=== PATIENT | female | born 1990 | race Caucasian/White ===

== ENCOUNTER 2021-01-29 22:36 | Inpatient (IN) | payer MEDICAID ==
[~2021-01-29] VITALS: Ht 162.6 cm; Wt 96.6 kg
[2021-01-29] MEDS ORDERED: SODIUM CHLORIDE 0.9% 1,000 ML IV ONE (23:45)
[2021-01-30] MEDS ORDERED: LABETALOL 5MG/ML SYR 20 MG/4 ML SYRINGE IV ONE
[2021-01-30 00:16] LABS: BASOPHILS % 0.6 % (0.0-2.0); HEMATOCRIT. 34.5 % (36.0-48.0); HEMOGLOBIN. 11.1 g/dL (12.0-16.0); LYMPHOCYTES % 21.3 % (20.0-50.0); MEAN CORPUSCULAR HEMOGLOBIN 29.1 pg (28.0-32.0); MEAN CORPUSCULAR VOLUME 90.5 fL (81.0-99.0); MEAN PLATELET VOLUME 10.3 fl (7.4-10.4); MONOCYTES % 3.6 % (2.0-8.0); NEUTROPHILS % 72.5 % (40.0-76.0); PLATELET 318 x1000/uL (130-400); RED BLOOD CELL COUNT 3.82 mill/uL (4.2-5.4); RED CELL DISTRIBUTION WIDTH 13.9 % (11.6-14.6)
[2021-01-30 00:21] LABS: CHLORIDE 101 mEq/L (98-107)
[2021-01-30 00:28] LABS: CLARITY URINE CLEAR (CLEAR); COLOR URINE YELLOW (YELLOW); KETONES URINE NEGATIVE (NEGATIVE); LEUKOCYTE ESTERASE URINE NEGATIVE (NEGATIVE); NITRITE URINE NEGATIVE (NEGATIVE); OCCULT BLOOD URINE TRACE (NEGATIVE); PH URINE 6.5 (4.5-8.0); PROTEIN URINE 4+ (NEGATIVE); SPECIFIC GRAVITY URINE 1.017 (1.005-1.030); UROBILINOGEN URINE 0.2 E.U./dL (0.2-1.0)
[2021-01-30 00:31] LABS: BETA HYDROXYBUTYRATE 0.1 mMol/L (0.0-0.3)
[2021-01-30] MEDS ORDERED: INSULIN REGULAR (HUMULIN R) 300UNITS/3ML VIAL SUBCUT ONE (01:15)
[2021-01-30] MEDS ORDERED: CEFTRIAXONE 1 G PREMIX 50 ML IV ONE (01:15)
[2021-01-30] MEDS ORDERED: AZITHROMYCIN 500 MG TABLET PO ONE (01:15)
[2021-01-30] MEDS ORDERED: ACETAMINOPHEN 325MG TABLET PO PRN (03:30)
[2021-01-30] MEDS ORDERED: HYDRALAZINE 20MG/ML VIAL IV PRN (03:30)
[2021-01-30] MEDS ORDERED: DIPHENHYDRAMINE 50MG/ML VIAL IV PRN (03:30)
[2021-01-30] MEDS ORDERED: GUAIFENESIN 200MG/10ML SUGAR FREE UDC PO PRN (03:30)
[2021-01-30] MEDS ORDERED: CLONIDINE 0.1MG TABLET PO PRN (03:30)
[2021-01-30] MEDS ORDERED: MORPHINE SULFATE 2 MG/ML CPJ (NOT FOR IM USE) IV PRN (03:30)
[2021-01-30] MEDS ORDERED: LORAZEPAM 2MG/ML CPJ IV PRN (03:30)
[2021-01-30] MEDS ORDERED: MAGNESIUM/ALUMINUM HYDROXIDE/SIMETHICONE 30ML UDC PO PRN (03:30)
[2021-01-30] MEDS ORDERED: HYDROCODONE/ACETAMINOPHEN 5/325MG TABLET PO PRN (03:30)
[2021-01-30] MEDS ORDERED: ONDANSETRON HCL 4MG/2ML INJ IV PRN (03:30)
[2021-01-30] MEDS ORDERED: DOCUSATE SODIUM 100MG CAPSULE PO PRN (03:30)
[2021-01-30] MEDS ORDERED: DEXTROSE 50% WATER 50ML SYRINGE IV PRN (03:30)
[2021-01-30] MEDS ORDERED: IPRATROPIUM/ALBUTEROL 0.5-3(2.5)MG/3ML NEB HHN PRN (03:30)
[2021-01-30] MEDS ORDERED: INSULIN LISPRO 100 UNITS/ML SUBCUT NR (04:00)
[2021-01-30] MEDS ORDERED: NALOXONE HCL 0.4MG/ML VIAL IV PRN (04:30)
[2021-01-30] MEDS ORDERED: INSULIN GLARGINE UD 100 UNITS/ML SYR SUBCUT SCH (05:00)
[2021-01-30 05:42] VITALS: BP 162/90
[2021-01-30 05:43] VITALS: BP 162/90
[2021-01-30] MEDS: SODIUM CHLORIDE 0.9% INJ 3ML FLUSH IVF SCH ×3 (05:51→21:04)
[2021-01-30] MEDS ORDERED: ATOR10TA PO (05:58)
[2021-01-30] MEDS ORDERED: INSLIS SUBCUT (05:58)
[2021-01-30] MEDS ORDERED: ASPI-1497 PO (05:58)
[2021-01-30] MEDS: BLOOD SUGAR DIAGNOSTIC STRIP TEST SCH ×4 (06:23→21:02)
[2021-01-30] MEDS: HYDRALAZINE HCL 50MG TABLET PO SCH ×3 (06:37→21:03)
[2021-01-30] MEDS: SODIUM CHLORIDE 0.45% 1,000 ML IV SCH ×2 (06:37→21:02)
[2021-01-30 06:52] LABS: BASOPHILS % 0.8 % (0.0-2.0); EOSINOPHILS % 1.7 % (0.0-5.0); HEMATOCRIT. 30.1 % (36.0-48.0); LYMPHOCYTES % 26.1 % (20.0-50.0); MEAN CORPUSCULAR HEMOGLOBIN 28.8 pg (28.0-32.0); MEAN CORPUSCULAR VOLUME 87.1 fL (81.0-99.0); MEAN PLATELET VOLUME 9.9 fl (7.4-10.4); MONOCYTES % 5.5 % (2.0-8.0); NEUTROPHILS % 65.9 % (40.0-76.0); PLATELET 286 x1000/uL (130-400); RED BLOOD CELL COUNT 3.46 mill/uL (4.2-5.4); RED CELL DISTRIBUTION WIDTH 13.4 % (11.6-14.6)
[2021-01-30 07:03] LABS: CHLORIDE 108 mEq/L (98-107)
[2021-01-30 08:00] VITALS: BP 128/76
[2021-01-30] MEDS: ENOXAPARIN 30MG/0.3ML SYR SUBCUT SCH (08:37)
[2021-01-30] MEDS: INSULIN LISPRO 100 UNITS/ML SUBCUT SCH ×4 (08:38→21:04)
[2021-01-30 13:31] VITALS: BP 126/71
[2021-01-30 16:00] VITALS: BP 129/73
[2021-01-30 20:00] VITALS: BP 119/74
[2021-01-30] MEDS: INSULIN GLARGINE UD 100 UNITS/ML SYR SUBCUT SCH (21:04)
[2021-01-31] VITALS: BP 123/75
[2021-01-31 04:00] VITALS: BP 111/69
[2021-01-31] MEDS: SODIUM CHLORIDE 0.9% INJ 3ML FLUSH IVF SCH ×3 (05:21→21:24)
[2021-01-31] MEDS: HYDRALAZINE HCL 50MG TABLET PO SCH ×3 (05:21→21:23)
[2021-01-31] MEDS: BLOOD SUGAR DIAGNOSTIC STRIP TEST SCH ×4 (07:20→21:24)
[2021-01-31] MEDS: INSULIN LISPRO 100 UNITS/ML SUBCUT SCH ×4 (07:50→21:25)
[2021-01-31 08:00] VITALS: BP 123/72
[2021-01-31 09:10] LABS: HEMATOCRIT 31.2 % (36.0-48.0); HEMOGLOBIN 10.4 g/dL (12.0-16.0); MEAN CORPUSCULAR VOLUME 86.9 fL (81.0-99.0); PLATELET 309 x1000/uL (130-400); RED BLOOD CELL COUNT 3.59 mill/uL (4.2-5.4); RED CELL DISTRIBUTION WIDTH 13.7 % (11.6-14.6)
[2021-01-31 09:14] LABS: CREATINE KINASE 48 IU/L (26-192)
[2021-01-31] MEDS: ENOXAPARIN 30MG/0.3ML SYR SUBCUT SCH (09:42)
[2021-01-31] MEDS: INSULIN GLARGINE UD 100 UNITS/ML SYR SUBCUT SCH ×2 (09:46→21:26)
[2021-01-31] MEDS: SODIUM CHLORIDE 0.45% 1,000 ML IV SCH ×2 (09:47→21:27)
[2021-01-31 11:22] LABS: HEPATITIS B SURFACE ANTIGEN NEGATIVE
[2021-01-31 12:00] VITALS: BP 139/87
[2021-01-31 16:00] VITALS: BP 136/83
[2021-01-31 20:00] VITALS: BP 161/88
[2021-02-01] VITALS: BP 129/68
[2021-02-01 04:00] VITALS: BP 110/56
[2021-02-01] MEDS: HYDRALAZINE HCL 50MG TABLET PO SCH (05:45)
[2021-02-01] MEDS: SODIUM CHLORIDE 0.9% INJ 3ML FLUSH IVF SCH (05:46)
[2021-02-01] MEDS: INSULIN LISPRO 100 UNITS/ML SUBCUT SCH ×2 (06:39→12:18)
[2021-02-01] MEDS: BLOOD SUGAR DIAGNOSTIC STRIP TEST SCH ×2 (06:39→12:16)
[2021-02-01] MEDS: ENOXAPARIN 30MG/0.3ML SYR SUBCUT SCH (08:48)
[2021-02-01 08:56] LABS: BASOPHILS % 0.6 % (0.0-2.0); HEMATOCRIT. 29.3 % (36.0-48.0); LYMPHOCYTES % 36.9 % (20.0-50.0); MEAN CORPUSCULAR HEMOGLOBIN 29.3 pg (28.0-32.0); MEAN CORPUSCULAR VOLUME 85.7 fL (81.0-99.0); MEAN PLATELET VOLUME 9.8 fl (7.4-10.4); MONOCYTES % 4.1 % (2.0-8.0); NEUTROPHILS % 54.4 % (40.0-76.0); PLATELET 292 x1000/uL (130-400); RED BLOOD CELL COUNT 3.42 mill/uL (4.2-5.4)
[2021-02-01] MEDS: INSULIN GLARGINE UD 100 UNITS/ML SYR SUBCUT SCH (10:00)
[2021-02-01] MEDS ORDERED: LISINOPRIL 2.5MG TABLET PO SCH (10:30)
[2021-02-01] MEDS: SODIUM CHLORIDE 0.45% 1,000 ML IV SCH (11:27)
[2021-02-01 12:00] VITALS: BP 145/83
[2021-02-01 13:09] VITALS: BP 145/83
[2021-02-04 10:08] LABS: ANTI-NUCLEAR ANTIBODIES DIRECT Negative (Negative)
== END 2021-02-01 13:56 | disposition home or self-care (01) | DRG 420 ==
LOC: ER 22:42 → 6WST 01-30 00:13 → ENRESERV 01-30 00:34
PROVIDERS: ADMIT Internal Medicine; ATTEND Internal Medicine
DX: E11.65 Type 2 diabetes mellitus with hyperglycemia (principal); N17.0 Acute kidney failure with tubular necrosis; E43 Unspecified severe protein-calorie malnutrition; E87.2 Acidosis; E86.0 Dehydration; E66.9 Obesity, unspecified; E11.319 Type 2 diabetes mellitus with unspecified diabetic retinopathy without macular edema; E78.00 Pure hypercholesterolemia, unspecified; E87.1 Hypo-osmolality and hyponatremia; E87.5 Hyperkalemia; E87.6 Hypokalemia; I10 Essential (primary) hypertension; I16.0 Hypertensive urgency
CPT/HCPCS: 36415; 71045; 76770; 80048; 80053; 80061; 81003; 82010; 82140; 82550; 82570; 82962; 83036; 83605; 83880; 84156; 84443; 84484; 85025; 85027; 86038; 86160; 86592; 86803; 87340; 93005; 93970; 99285; C1893; J0696; J1650; J1815; J3490; J7030

== ENCOUNTER 2022-09-14 13:02 | Inpatient (IN) | payer MEDICAID ==
[~2022-09-14] VITALS: Ht 147.3 cm; Wt 93.0 kg
[~2022-09-14 13:02] MED LIST: AMLO10TA80 PO; ASPI-1497 PO; ATOR10TA PO; BLOO-1812 MC; CALC667C PO; FERR-63 PO; INSU100I28 SQ; LANC-585 TP; METF-414 MT; METO25TA6 PO; NEED-472 SQ; OMEP20CA14 PO
[2022-09-14 15:04] LABS: CHLORIDE 92 mEq/L (98-107)
[2022-09-14 15:12] LABS: PROTHROMBIN TIME 10.3 sec (9.6-11.0)
[2022-09-14 15:18] LABS: BASOPHILS % 0.4 % (0.0-2.0); EOSINOPHILS % 0.5 % (0.0-5.0); HEMATOCRIT. 27.2 % (36.0-48.0); HEMOGLOBIN. 9.1 g/dL (12.0-16.0); LYMPHOCYTES % 13.9 % (20.0-50.0); MEAN CORPUSCULAR HEMOGLOBIN 31.3 pg (28.0-32.0); MEAN CORPUSCULAR VOLUME 93.3 fL (81.0-99.0); MEAN PLATELET VOLUME 9.9 fl (7.4-10.4); MONOCYTES % 4.9 % (2.0-8.0); NEUTROPHILS % 80.3 % (40.0-76.0); PLATELET 298 x1000/uL (130-400); RED BLOOD CELL COUNT 2.91 mill/uL (4.2-5.4); RED CELL DISTRIBUTION WIDTH 14.3 % (11.6-14.6)
[2022-09-14] MEDS ORDERED: MORPHINE SULFATE 4 MG/ML CPJ (NOT FOR IM USE) IV ONE (16:45)
[2022-09-14 17:05] LABS: CLARITY URINE CLEAR (CLEAR); COLOR URINE YELLOW (YELLOW); KETONES URINE NEGATIVE (NEGATIVE); LEUKOCYTE ESTERASE URINE NEGATIVE (NEGATIVE); NITRITE URINE NEGATIVE (NEGATIVE); OCCULT BLOOD URINE 1+ (NEGATIVE); PH URINE 7.5 (4.5-8.0); PROTEIN URINE 4+ (NEGATIVE); SPECIFIC GRAVITY URINE 1.025 (1.005-1.030); UROBILINOGEN URINE 0.2 E.U./dL (0.2-1.0)
[2022-09-14] MEDS ORDERED: INSULIN REGULAR (HUMULIN R) 300UNITS/3ML VIAL IV NR (17:45)
[2022-09-14 18:30] VITALS: BP 176/92
[2022-09-14] MEDS ORDERED: ACETAMINOPHEN 325MG TABLET PO PRN ×2 (18:45)
[2022-09-14] MEDS ORDERED: LORAZEPAM 0.5MG TABLET PO PRN (18:45)
[2022-09-14] MEDS ORDERED: ONDANSETRON HCL 4MG/2ML INJ IV PRN (18:45)
[2022-09-14] MEDS ORDERED: IPRATROPIUM/ALBUTEROL 0.5-3(2.5)MG/3ML NEB HHN PRN (18:45)
[2022-09-14] MEDS ORDERED: NALOXONE HCL 0.4MG/ML VIAL IV PRN (19:00)
[2022-09-14] MEDS: CLONIDINE 0.1MG TABLET PO PRN (19:45)
[2022-09-14 20:00] VITALS: BP 184/93
[2022-09-14] MEDS: HYDROCODONE/ACETAMINOPHEN 5/325MG TABLET PO PRN (20:15)
[2022-09-14] MEDS ORDERED: DEXTROSE 50% WATER 50ML SYRINGE IV PRN (23:45)
[2022-09-15] VITALS (19 sets, daily range): BP systolic 102–201; BP diastolic 51–87
[2022-09-15] MEDS: BLOOD SUGAR DIAGNOSTIC STRIP TEST SCH ×4 (05:50→20:12)
[2022-09-15 07:24] LABS: BASOPHILS % 0.3 % (0.0-2.0); EOSINOPHILS % 0.1 % (0.0-5.0); HEMATOCRIT. 24.1 % (36.0-48.0); HEMOGLOBIN. 8.2 g/dL (12.0-16.0); LYMPHOCYTES % 13.8 % (20.0-50.0); MEAN CORPUSCULAR HEMOGLOBIN 31.7 pg (28.0-32.0); MEAN PLATELET VOLUME 9.8 fl (7.4-10.4); MONOCYTES % 5.2 % (2.0-8.0); NEUTROPHILS % 80.6 % (40.0-76.0); PLATELET 278 x1000/uL (130-400); RED BLOOD CELL COUNT 2.59 mill/uL (4.2-5.4); RED CELL DISTRIBUTION WIDTH 14.3 % (11.6-14.6)
[2022-09-15] MEDS: INSULIN LISPRO 100 UNITS/ML SUBCUT SCH ×4 (10:06→20:29)
[2022-09-15] MEDS: INSULIN GLARGINE 100 UNITS/ML SUBCUT SCH (10:43)
[2022-09-15] MEDS: CLONIDINE 0.1MG TABLET PO PRN (16:45)
[2022-09-15] MEDS: HYDROCODONE/ACETAMINOPHEN 5/325MG TABLET PO PRN (16:55)
[2022-09-15] MEDS: PIPERACILLIN/TAZOBACTAM 3.375 G in DEXTROSE 5% WATER 50 ML IV SCH (20:28)
[2022-09-15] MEDS: EPOETIN ALFA-EPBX 4,000 UNIT/ML VIAL SUBCUT SCH (20:28)
[2022-09-15 21:53] LABS: HEPATITIS B SURFACE ANTIGEN NEGATIVE
[2022-09-16] VITALS (9 sets, daily range): BP systolic 98–155; BP diastolic 51–84
[2022-09-16 06:44] LABS: BASOPHILS % 0.4 % (0.0-2.0); EOSINOPHILS % 1.5 % (0.0-5.0); HEMATOCRIT. 22.7 % (36.0-48.0); HEMOGLOBIN. 7.6 g/dL (12.0-16.0); LYMPHOCYTES % 23.6 % (20.0-50.0); MEAN CORPUSCULAR HEMOGLOBIN 31.1 pg (28.0-32.0); MEAN CORPUSCULAR VOLUME 93.6 fL (81.0-99.0); MEAN PLATELET VOLUME 9.7 fl (7.4-10.4); MONOCYTES % 6.2 % (2.0-8.0); NEUTROPHILS % 68.3 % (40.0-76.0); PLATELET 260 x1000/uL (130-400); RED BLOOD CELL COUNT 2.43 mill/uL (4.2-5.4); RED CELL DISTRIBUTION WIDTH 14.4 % (11.6-14.6)
[2022-09-16] MEDS: BLOOD SUGAR DIAGNOSTIC STRIP TEST SCH ×4 (06:58→21:09)
[2022-09-16 07:17] LABS: PHOSPHORUS 4.5 mg/dL (2.5-4.9)
[2022-09-16] MEDS: INSULIN LISPRO 100 UNITS/ML SUBCUT SCH ×4 (07:58→21:00)
[2022-09-16] MEDS: PIPERACILLIN/TAZOBACTAM 3.375 G in DEXTROSE 5% WATER 50 ML IV SCH ×2 (08:22→21:08)
[2022-09-16] MEDS: FOLIC ACID/VITAMIN B COMP W-C TABLET PO SCH (08:22)
[2022-09-16] MEDS: INSULIN GLARGINE 100 UNITS/ML SUBCUT SCH (10:42)
[2022-09-17] VITALS: BP 131/66
[2022-09-17 04:00] VITALS: BP 135/60
[2022-09-17 06:06] LABS: PHOSPHORUS 4.2 mg/dL (2.5-4.9)
[2022-09-17 06:11] LABS: BASOPHILS % 0.5 % (0.0-2.0); HEMATOCRIT. 23.7 % (36.0-48.0); HEMOGLOBIN. 8.1 g/dL (12.0-16.0); MEAN CORPUSCULAR HEMOGLOBIN 32.1 pg (28.0-32.0); MEAN CORPUSCULAR VOLUME 93.5 fL (81.0-99.0); MEAN PLATELET VOLUME 9.6 fl (7.4-10.4); MONOCYTES % 6.4 % (2.0-8.0); NEUTROPHILS % 58.1 % (40.0-76.0); PLATELET 283 x1000/uL (130-400); RED BLOOD CELL COUNT 2.54 mill/uL (4.2-5.4); RED CELL DISTRIBUTION WIDTH 14.2 % (11.6-14.6)
[2022-09-17] MEDS: BLOOD SUGAR DIAGNOSTIC STRIP TEST SCH ×4 (07:40→21:18)
[2022-09-17 08:00] VITALS: BP 124/62
[2022-09-17] MEDS: INSULIN LISPRO 100 UNITS/ML SUBCUT SCH ×4 (08:10→21:17)
[2022-09-17] MEDS: FOLIC ACID/VITAMIN B COMP W-C TABLET PO SCH (08:59)
[2022-09-17] MEDS: PIPERACILLIN/TAZOBACTAM 3.375 G in DEXTROSE 5% WATER 50 ML IV SCH ×2 (09:35→21:17)
[2022-09-17] MEDS: INSULIN GLARGINE 100 UNITS/ML SUBCUT SCH (10:00)
[2022-09-17 12:00] VITALS: BP 132/62
[2022-09-17 16:00] VITALS: BP 163/84
[2022-09-17] MEDS: CLONIDINE 0.1MG TABLET PO PRN (16:36)
[2022-09-17 20:00] VITALS: BP 109/61
[2022-09-17] MEDS: EPOETIN ALFA-EPBX 4,000 UNIT/ML VIAL SUBCUT SCH (21:18)
[2022-09-18] VITALS: BP 127/65
[2022-09-18 04:00] VITALS: BP 115/60
[2022-09-18 05:48] LABS: BASOPHILS % 0.6 % (0.0-2.0); EOSINOPHILS % 4.9 % (0.0-5.0); HEMATOCRIT. 21.1 % (36.0-48.0); HEMOGLOBIN. 7.3 g/dL (12.0-16.0); LYMPHOCYTES % 33.8 % (20.0-50.0); MEAN CORPUSCULAR HEMOGLOBIN 32.4 pg (28.0-32.0); MEAN CORPUSCULAR VOLUME 93.1 fL (81.0-99.0); MEAN PLATELET VOLUME 9.5 fl (7.4-10.4); MONOCYTES % 6.9 % (2.0-8.0); NEUTROPHILS % 53.8 % (40.0-76.0); PLATELET 299 x1000/uL (130-400); RED BLOOD CELL COUNT 2.27 mill/uL (4.2-5.4); RED CELL DISTRIBUTION WIDTH 14.1 % (11.6-14.6)
[2022-09-18 06:24] LABS: PHOSPHORUS 5.1 mg/dL (2.5-4.9)
[2022-09-18] MEDS: INSULIN LISPRO 100 UNITS/ML SUBCUT SCH ×4 (07:15→20:23)
[2022-09-18] MEDS: BLOOD SUGAR DIAGNOSTIC STRIP TEST SCH ×4 (07:17→20:23)
[2022-09-18 08:00] VITALS: BP 150/80
[2022-09-18] MEDS: PIPERACILLIN/TAZOBACTAM 3.375 G in DEXTROSE 5% WATER 50 ML IV SCH ×2 (09:00→20:22)
[2022-09-18] MEDS: FOLIC ACID/VITAMIN B COMP W-C TABLET PO SCH (09:01)
[2022-09-18] MEDS: HYDROCODONE/ACETAMINOPHEN 5/325MG TABLET PO PRN (09:11)
[2022-09-18] MEDS: INSULIN GLARGINE 100 UNITS/ML SUBCUT SCH (11:01)
[2022-09-18 12:00] VITALS: BP 138/78
[2022-09-18] MEDS ORDERED: DIPHENHYDRAMINE 50MG/ML VIAL IV NR (14:00)
[2022-09-18 16:00] VITALS: BP 144/82
[2022-09-18 20:00] VITALS: BP 159/78
[2022-09-18] MEDS ORDERED: EPOETIN ALFA-EPBX 4,000 UNIT/ML VIAL SUBCUT NR (21:00)
[2022-09-19] VITALS (15 sets, daily range): BP systolic 124–190; BP diastolic 63–108
[2022-09-19] MEDS: BLOOD SUGAR DIAGNOSTIC STRIP TEST SCH ×4 (06:40→21:48)
[2022-09-19 07:10] LABS: BASOPHILS % 0.5 % (0.0-2.0); EOSINOPHILS % 5.8 % (0.0-5.0); HEMATOCRIT. 22.2 % (36.0-48.0); HEMOGLOBIN. 7.6 g/dL (12.0-16.0); LYMPHOCYTES % 27.5 % (20.0-50.0); MEAN CORPUSCULAR HEMOGLOBIN 31.9 pg (28.0-32.0); MEAN PLATELET VOLUME 9.2 fl (7.4-10.4); MONOCYTES % 5.6 % (2.0-8.0); NEUTROPHILS % 60.6 % (40.0-76.0); PLATELET 336 x1000/uL (130-400); RED BLOOD CELL COUNT 2.39 mill/uL (4.2-5.4); RED CELL DISTRIBUTION WIDTH 14.3 % (11.6-14.6)
[2022-09-19 08:07] LABS: PHOSPHORUS 6.5 mg/dL (2.5-4.9)
[2022-09-19] MEDS: INSULIN LISPRO 100 UNITS/ML SUBCUT SCH ×4 (08:10→22:14)
[2022-09-19] MEDS: FOLIC ACID/VITAMIN B COMP W-C TABLET PO SCH (09:22)
[2022-09-19] MEDS: PIPERACILLIN/TAZOBACTAM 3.375 G in DEXTROSE 5% WATER 50 ML IV SCH ×2 (09:22→20:40)
[2022-09-19] MEDS: INSULIN GLARGINE 100 UNITS/ML SUBCUT SCH (09:23)
[2022-09-19] MEDS: CLONIDINE 0.1MG TABLET PO PRN (14:44)
[2022-09-20] VITALS: BP 111/54
[2022-09-20 04:00] VITALS: BP 149/80
[2022-09-20 06:19] LABS: BASOPHILS % 0.7 % (0.0-2.0); EOSINOPHILS % 5.5 % (0.0-5.0); HEMATOCRIT. 24.9 % (36.0-48.0); HEMOGLOBIN. 8.5 g/dL (12.0-16.0); LYMPHOCYTES % 33.9 % (20.0-50.0); MEAN CORPUSCULAR HEMOGLOBIN 31.9 pg (28.0-32.0); MEAN CORPUSCULAR VOLUME 93.4 fL (81.0-99.0); MEAN PLATELET VOLUME 9.4 fl (7.4-10.4); MONOCYTES % 5.9 % (2.0-8.0); PLATELET 357 x1000/uL (130-400); RED BLOOD CELL COUNT 2.66 mill/uL (4.2-5.4); RED CELL DISTRIBUTION WIDTH 14.3 % (11.6-14.6)
[2022-09-20] MEDS: BLOOD SUGAR DIAGNOSTIC STRIP TEST SCH ×3 (06:20→17:17)
[2022-09-20 07:04] LABS: HCG SCREEN NEGATIVE
[2022-09-20 07:41] VITALS: BP 145/68
[2022-09-20] MEDS: INSULIN LISPRO 100 UNITS/ML SUBCUT SCH ×3 (07:51→17:46)
[2022-09-20] MEDS ORDERED: AMLODIPINE 2.5MG TABLET PO SCH (09:00)
[2022-09-20] MEDS: FOLIC ACID/VITAMIN B COMP W-C TABLET PO SCH (09:45)
[2022-09-20] MEDS: PIPERACILLIN/TAZOBACTAM 3.375 G in DEXTROSE 5% WATER 50 ML IV SCH (09:45)
[2022-09-20] MEDS: INSULIN GLARGINE 100 UNITS/ML SUBCUT SCH (10:01)
[2022-09-20 13:15] VITALS: BP 157/80
[2022-09-20] MEDS ORDERED: AMLO2.5T45 PO (13:26)
[2022-09-20] MEDS ORDERED: AMOXICILLIN/POTASSIUM CLAVULANATE 875/125MG TAB PO SCH (13:30)
[2022-09-20] MEDS ORDERED: AMOXICILLIN/POTASSIUM CLAVULANATE 500/125MG TAB PO SCH ×2 (13:43→16:16)
[2022-09-20] MEDS ORDERED: DIPHENHYDRAMINE 50MG/ML VIAL IV PRN (13:45)
[2022-09-20] MEDS ORDERED: MICO15CR9 VG (16:19)
[2022-09-20] MEDS ORDERED: EPOETIN ALFA-EPBX 4,000 UNIT/ML VIAL SUBCUT SCH (21:00)
[2022-09-20] MEDS ORDERED: MICONAZOLE NITRATE 100MG VAG SUPP VG SCH (21:00)
== END 2022-09-20 18:43 | disposition home or self-care (01) | DRG 720 ==
LOC: ER 13:02 → 7WST 17:30 → EDBEDREQ 17:32 → EDBEDREQTM 17:32 → EDBEDREQ 17:33
PROVIDERS: ADMIT Internal Medicine; ATTEND Internal Medicine
PROC: 5A1D70Z Performance of Urinary Filtration, Intermittent, Less than 6 Hours Per Day (ICD-10-PCS; principal; 2022-09-15)
PROC: 5A1D70Z Performance of Urinary Filtration, Intermittent, Less than 6 Hours Per Day (ICD-10-PCS; 2022-09-16)
PROC: 5A1D70Z Performance of Urinary Filtration, Intermittent, Less than 6 Hours Per Day (ICD-10-PCS; 2022-09-19)
DX: A41.9 Sepsis, unspecified organism (principal); J96.00 Acute respiratory failure, unspecified whether with hypoxia or hypercapnia; I13.2 Hypertensive heart and chronic kidney disease with heart failure and with stage 5 chronic kidney disease, or end stage renal disease; E44.1 Mild protein-calorie malnutrition; E11.319 Type 2 diabetes mellitus with unspecified diabetic retinopathy without macular edema; D64.9 Anemia, unspecified; E11.22 Type 2 diabetes mellitus with diabetic chronic kidney disease; J84.9 Interstitial pulmonary disease, unspecified; N18.6 End stage renal disease; I50.9 Heart failure, unspecified; E11.65 Type 2 diabetes mellitus with hyperglycemia; H54.7 Unspecified visual loss; E78.00 Pure hypercholesterolemia, unspecified; K21.9 Gastro-esophageal reflux disease without esophagitis; G62.9 Polyneuropathy, unspecified; F41.9 Anxiety disorder, unspecified; E21.3 Hyperparathyroidism, unspecified; Z99.2 Dependence on renal dialysis; Z79.4 Long term (current) use of insulin; Z98.891 History of uterine scar from previous surgery; Z79.899 Other long term (current) drug therapy; Z82.49 Family history of ischemic heart disease and other diseases of the circulatory system; Z88.1 Allergy status to other antibiotic agents
CPT/HCPCS: 36415; 71045; 72131; 80048; 80053; 81003; 82962; 83036; 83735; 84100; 84145; 84484; 84703; 85025; 85651; 86705; 86709; 86803; 87340; 90935; 93970; 93971; 99285; A6261; J0885; J1200; J1815; J2270; J2543; J7060

== ENCOUNTER 2023-12-12 11:19 | Emergency (ER) | payer MEDICAID ==
[~2023-12-12] VITALS: Ht 127 cm; Wt 70.0 kg
[~2023-12-12 11:19] MED LIST changes: -ATOR10TA PO; +ATOR20TA PO; +METO-539 PO; -METO25TA6 PO
[2023-12-12 11:23] VITALS: O2SAT 96
[2023-12-12 11:45] VITALS: BP 172/75; PULSE 68; RESP 16; TEMP 98.3
[2023-12-12] MEDS: CLONIDINE 0.1MG TABLET PO ONE (12:21)
== END 2023-12-12 19:00 | disposition home or self-care (01) ==
LOC: ER 11:19
DX: I10 Essential (primary) hypertension (principal); T82.838A Hemorrhage due to vascular prosthetic devices, implants and grafts, initial encounter; N28.9 Disorder of kidney and ureter, unspecified; E78.00 Pure hypercholesterolemia, unspecified; E11.9 Type 2 diabetes mellitus without complications; Z79.82 Long term (current) use of aspirin; Z88.6 Allergy status to analgesic agent; Z88.1 Allergy status to other antibiotic agents; Z79.899 Other long term (current) drug therapy
CPT/HCPCS: 99283; Z7610 ×2

== ENCOUNTER 2024-04-05 09:12 | Emergency (ER) | payer MEDICAID ==
[~2024-04-05] VITALS: Ht 165.1 cm; Wt 75.0 kg
[2024-04-05 09:14] VITALS: O2SAT 98
[2024-04-05 09:54] LABS: BASOPHILS % 0.6 % (0.0-2.0); DIFFERENTIAL COMMENT 0; EOSINOPHILS % 2.1 % (0.0-5.0); HEMATOCRIT. 39.5 % (36.0-48.0); LYMPHOCYTES % 19.4 % (20.0-50.0); MEAN CORPUSCULAR HGB CONC 32.8 g/dL (31.0-37.0); MEAN CORPUSCULAR VOLUME 100.5 fL (81.0-99.0); MEAN PLATELET VOLUME 9.5 fl (7.4-10.4); MONOCYTES % 6.8 % (2.0-8.0); NEUTROPHILS % 71.1 % (40.0-76.0); PLATELET 192 x1000/uL (130-400); RED BLOOD CELL COUNT 3.93 mill/uL (4.2-5.4); RED CELL DISTRIBUTION WIDTH 17.4 % (11.6-14.6); WHITE BLOOD COUNT 7.4 x1000/uL (4.5-11.0)
[2024-04-05 09:55] VITALS: TEMP 36.89184
[2024-04-05 10:03] LABS: CHLORIDE 96 mEq/L (98-107); POTASSIUM 4.7 mEq/L (3.5-5.1); SODIUM 135 mEq/L (136-145)
[2024-04-05 10:04] LABS: CALCIUM 10.1 mg/dL (8.7-10.4); CARBON DIOXIDE 27 mEq/L (21-32)
[2024-04-05 10:09] LABS: CREATININE 8.9 mg/dL (0.6-1.0); GLUCOSE 69 mg/dL (70-105); UREA NITROGEN BLOOD 42 mg/dL (9-23)
[2024-04-05 10:10] LABS: TROPONIN I HIGH SENSITIVITY 12 ng/L (3.0-34)
[2024-04-05] MEDS: HYDRALAZINE HCL 25MG TABLET PO ONE (10:18)
[2024-04-05 12:15] VITALS: BP 162/75; PULSE 70; RESP 18; O2SAT 98
== END 2024-04-05 12:49 | disposition home or self-care (01) ==
LOC: ER 09:12
DX: I11.9 Hypertensive heart disease without heart failure (principal); E11.9 Type 2 diabetes mellitus without complications; E78.00 Pure hypercholesterolemia, unspecified; Z88.1 Allergy status to other antibiotic agents; Z79.84 Long term (current) use of oral hypoglycemic drugs; Z79.899 Other long term (current) drug therapy; Z99.2 Dependence on renal dialysis
CPT/HCPCS: 80048; 85025; 84484; 36415; 71045; 99284; Z7610

== ENCOUNTER 2024-10-21 14:36 | Emergency (ER) | payer MEDICAID ==
[~2024-10-21] VITALS: Ht 101.6 cm; Wt 73.0 kg
[2024-10-21 14:49] VITALS: O2SAT 98
[2024-10-21 15:28] LABS: EOSINOPHILS % 5.6 % (0.0-5.0); HEMATOCRIT. 31.5 % (36.0-48.0); HEMOGLOBIN. 10.4 g/dL (12.0-16.0); LYMPHOCYTES % 15.4 % (20.0-50.0); MEAN CORPUSCULAR HGB CONC 33.1 g/dL (31.0-37.0); MEAN CORPUSCULAR VOLUME 96.6 fL (81.0-99.0); PLATELET 237 x1000/uL (130-400); RED BLOOD CELL COUNT 3.26 mill/uL (4.2-5.4); RED CELL DISTRIBUTION WIDTH 14.8 % (11.6-14.6); WHITE BLOOD COUNT 6.7 x1000/uL (4.5-11.0)
[2024-10-21 15:31] LABS: POTASSIUM 4.4 mEq/L (3.5-5.1)
[2024-10-21 15:32] LABS: CALCIUM 9.3 mg/dL (8.7-10.4)
[2024-10-21 15:46] LABS: CREATININE 7.5 mg/dL (0.6-1.0)
[2024-10-21 16:53] LABS: D-DIMER 1.62 mg/L FEU (<0.50); INR 1.1; PROTHROMBIN TIME 11.7 sec (9.6-11.0)
[2024-10-21 17:00] LABS: ALANINE AMINOTRANSFERASE 11 IU/L (10-49); ALBUMIN 4.2 g/dL (3.2-4.8); ASPARTATE AMINOTRANSFERASE 19 IU/L (<34); BILIRUBIN DIRECT 1.2 mg/dL (<=3.0); BILIRUBIN TOTAL 1.7 mg/dL (0.1-1.0); PROTEIN TOTAL 7.4 g/dL (6.0-8.3)
[2024-10-21 17:19] VITALS: BP 191/83; PULSE 81; RESP 18; TEMP 36.7; O2SAT 100
== END 2024-10-21 17:49 | disposition home or self-care (01) ==
LOC: ER 14:36
DX: M79.662 Pain in left lower leg (principal); E11.22 Type 2 diabetes mellitus with diabetic chronic kidney disease; E78.00 Pure hypercholesterolemia, unspecified; I12.0 Hypertensive chronic kidney disease with stage 5 chronic kidney disease or end stage renal disease; N18.6 End stage renal disease; Z79.4 Long term (current) use of insulin; Z79.82 Long term (current) use of aspirin; Z79.84 Long term (current) use of oral hypoglycemic drugs; Z79.899 Other long term (current) drug therapy; Z88.1 Allergy status to other antibiotic agents; Z90.49 Acquired absence of other specified parts of digestive tract; Z99.2 Dependence on renal dialysis
CPT/HCPCS: 36415; 80048; 80076; 85025; 85379; 93971; 99284